=== PATIENT | male | born 1965 | race Caucasian/White ===

== ENCOUNTER 2019-09-27 18:18 | Emergency (ER) | payer OTHER ==
[2019-09-27 18:42] LABS: ABS Eosinophils 0.1 10^3/ul (0-0.6); ABS Lymphocytes 2.5 10^3/ul (1.0-4.8); ABS Monocytes 0.5 10^3/ul (0-0.8); ABS Neutrophils 3.5 10^3/ul (1.5-7.7); Eosinophil % 2.2 %; Hematocrit 45 % (42-52); Hemoglobin 15.7 g/dL (14.0-18.0); Lymphocyte % 37.2 %; Mean Corpuscular HGB Conc 35 g/dL (31-36); Mean Corpuscular Hemoglobin 31 pg (27-31); Mean Corpuscular Volume 88 fL (80-94); Mean Platelet Volume 7.1 fL (7.4-10.4); Platelet Count 182 10^3/uL (150-450); Red Blood Count 5.07 10^6 /uL (4.18-5.48); Red Cell Distribution Width 13 % (10-15); White Blood Count 6.8 10^3/uL (3.5-10.8)
[2019-09-27 18:46] LABS: INR 0.97 (0.82-1.09)
[2019-09-27 18:57] LABS: Albumin 4.6 g/dL (3.2-5.2); Albumin/Globulin Ratio 1.5 (1-3); BUN/Creatinine Ratio 18.4 (8-20); Calcium 9.4 mg/dL (8.6-10.3); EGFR African American 111.1 (>60); EGFR Non-African American 91.8 (>60); Globulin 3.1 g/dL (2-4); Potassium 3.3 mmol/L (3.5-5.0); Total Bilirubin 0.5 mg/dL (0.2-1.0); Total Protein 7.7 g/dL (6.4-8.9)
[2019-09-27 18:59] LABS: Troponin I 0.01 ng/mL (<0.04)
[2019-09-27] MEDS ORDERED: Sucralfate TAB* 1 GM PO ONE (20:45)
--- NOTE | 2019-09-27 20:50 | ED ---
HPI Chest Pain - HPI Summary HPI Summary: This patient is a 54 year old M presenting to ED with a chief complaint of intermittent sub-sternal chest pain described as tightness since three days ago. Patient was in the yard moving firewood all weekend. He felt fine this morning but noticed the chest tightness after a stressful situation at work. Patient has been having similar pain off-and-on since the summer and thinks it is acid reflux, but decided after this bout to see a doctor. He called his PCP who recommended he come here. In the room, patient reports still having the chest tightness. The patient rates the pain 1/10 in severity. Symptoms aggravated by stressful situations. Symptoms alleviated by burping, drinking fluids, and deep breathing. Patient denies nausea, vomiting, lightheadedness, dizziness, fevers, chills. - History of Current Complaint Chief Complaint: EDChestPainROMI Time Seen by Provider: 09/27/19 20:37 Hx Obtained From: Patient Onset/Duration: Started Days Ago - 3 days, Still Present Timing: Intermittent Initial Severity: Mild Current Severity: Mild Pain Intensity: 1 Pain Scale Used: 0-10 Numeric Chest Pain Location: Discrete at: - Sub-sternal Character: Tightness Aggravating Factor(s): Nothing Alleviating Factor(s): Other: - Burping, drinking fluids, deep breaths Associated Signs and Symptoms: Negative: Dizziness, Fever, Chills, Lightheadedness, Nausea, Vomiting - Allergy/Home Medications Allergies/Adverse Reactions: Allergies Allergy/AdvReac Type Severity Reaction Status Date / Time No Known Allergies Allergy Verified 09/27/19 18:24 PMH/Surg Hx/FS Hx/Imm Hx Previously Healthy: No Endocrine/Hematology History: Denies: Hx Diabetes Cardiovascular History: Reports: Hx Hypercholesterolemia Denies: Hx Hypertension, Hx Pacemaker/ICD History: Denies: Hx Renal Disease Sensory History: Denies: Hx Hearing Aid Psychiatric History: Denies: Hx Panic Disorder Infectious Disease History: No Infectious Disease History: Denies: Traveled Outside the [place] in Last 30 Days - Family History Known Family History: Positive: Cardiac Disease, Hypertension - Social History Alcohol Use: Daily Alcohol Amount: 2-3 drinks/day Hx Substance Use: No Substance Use Type: Reports: None Hx Tobacco Use: No Smoking Status (MU): Never Smoked Tobacco Review of Systems Negative: Fever, Chills Positive: Chest Pain Negative: Vomiting, Nausea Neurological: Negative - Lightheadedness, dizziness All Other Systems Reviewed And Are Negative: Yes Physical Exam - Summary Physical Exam Summary: Appearance: The patient is well-nourished in no acute distress and in no acute pain. Skin: The skin is warm and dry, and skin color reflects adequate perfusion. HEENT: The head is normocephalic and atraumatic. The pupils are equal and reactive. The conjunctivae are clear and without drainage. Nares are patent and without drainage. Mouth reveals moist mucous membranes, and the throat is without erythema and exudate. The external ears are intact. The ear canals are patent and without drainage. The tympanic membranes are intact. Neck: The neck is supple with full range of motion and non-tender. There are no carotid bruits. There is no neck vein distension. Respiratory: Chest is non-tender. Lungs are clear to auscultation and breath sounds are symmetrical and equal. Cardiovascular: Heart is regular rate and rhythm. There is no murmur or rub auscultated. There is no peripheral edema and pulses are symmetrical and equal. Abdomen: The abdomen is soft and non-tender. There are normal bowel sounds heard in all four quadrants and there is no organomegaly palpated. Musculoskeletal: There is no back tenderness noted. Extremities are non-tender with full range of motion. There is good capillary refill. There is no peripheral edema or calf tenderness elicited. Neurological: Patient is alert and oriented to person, place and time. The patient has symmetrical motor strength in all four extremities. Cranial nerves are grossly intact. Deep tendon reflexes are symmetrical and equal in all four extremities. Psychiatric: The patient has an appropriate affect and does not exhibit any anxiety or depression. Triage Information Reviewed: Yes Vital Signs On Initial Exam: Initial Vitals Temp Pulse Resp BP Pulse Ox 97.1 F 71 14 0/0 100 09/27/19 18:22 09/27/19 18:22 09/27/19 18:22 09/27/19 18:22 09/27/19 18:22 Vital Signs Reviewed: Yes Procedures - Sedation Patient Received Moderate/Deep Sedation with Procedure: No Diagnostics - Vital Signs Vital Signs Temp Pulse Resp BP Pulse Ox 09/27/19 18:22 97.1 F 71 14 0/0 100 - Laboratory Lab Results: Lab Results 09/27/19 09/27/19 09/27/19 Range/Units 18:27 18:27 18:27 WBC 6.8 (3.5-10.8) 10^3/uL RBC 5.07 (4.18-5.48) 10^6 /uL Hgb 15.7 (14.0-18.0) g/dL Hct 45 (42-52) % MCV 88 (80-94) fL MCH 31 (27-31) pg MCHC 35 (31-36) g/dL RDW 13 (10-15) % Plt Count 182 (150-450) 10^3/uL MPV 7.1 L (7.4-10.4) fL Neut % (Auto) 52.2 % Lymph % (Auto) 37.2 % Haakon % (Auto) 7.8 % Eos % (Auto) 2.2 % Baso % (Auto) 0.6 % Absolute Neuts (auto) 3.5 (1.5-7.7) 10^3/ul Absolute Lymphs (auto) 2.5 (1.0-4.8) 10^3/ul Absolute Monos (auto) 0.5 (0-0.8) 10^3/ul Absolute Eos (auto) 0.1 (0-0.6) 10^3/ul Absolute Basos (auto) 0.0 (0-0.2) 10^3/ul Absolute Nucleated RBC 0.0 10^3/ul Nucleated RBC % 0.0 INR (Anticoag Therapy) 0.97 (0.82-1.09) Sodium 139 (135-145) mmol/L Potassium 3.3 L (3.5-5.0) mmol/L Chloride 106 (101-111) mmol/L Carbon Dioxide 27 (22-32) mmol/L Anion Gap 6 (2-11) mmol/L BUN 16 (6-24) mg/dL Creatinine 0.87 (0.67-1.17) mg/dL Est GFR ( Amer) 111.1 (>60) Est GFR (Non-Af Amer) 91.8 (>60) BUN/Creatinine Ratio 18.4 (8-20) Glucose 136 H (70-100) mg/dL Calcium 9.4 (8.6-10.3) mg/dL Total Bilirubin 0.50 (0.2-1.0) mg/dL AST 25 (13-39) U/L ALT 32 (7-52) U/L Alkaline Phosphatase 62 (34-104) U/L Troponin I 0.01 (<0.04) ng/mL Total Protein 7.7 (6.4-8.9) g/dL Albumin 4.6 (3.2-5.2) g/dL Globulin 3.1 (2-4) g/dL Albumin/Globulin Ratio 1.5 (1-3) Result Diagrams: 09/27/19 18:27 09/27/19 18:27 Lab Statement: Any lab studies that have been ordered have been reviewed, and results considered in the medical decision making process. - EKG 1822 Cardiac Rate: NL - 70 BPM EKG Rhythm: Sinus Rhythm ST Segment: Normal Ectopy: None Summary of EKG Findings: Normal sinus rhythm at 70 BPM, normal ST, no ectopy, no STEMI. Dr. Ness has reviewed and interpreted this EKG. Re-Evaluation - Re-Evaluation First Eval Re-Evaluation Time: 21:51 Change: Unchanged Comment: Patient reports still feeling the tightness in his chest. Chest Pain Course/Dx - Course Course Of Treatment: Mr. Humphries presented with an atypical chest pain. His EKG , chest x-ray and labs were all within normal limits. His heart score was 1. I believe this is GI problem but he only got minor relief from sucralfate. I recommended follow-up with his PCP for further evaluation and possible referral. - Diagnoses Provider Diagnoses: Chest pain Discharge ED - Sign-Out/Discharge Documenting (check all that apply): Patient Departure - Discharge Plan Condition: Stable Disposition: HOME Referrals: Yemi Shankar MD [Primary Care Provider] - - Billing Disposition and Condition Condition: STABLE Disposition: Home - Attestation Statements Document Initiated by Priscilaibe: Yes Documenting Scribe: Evert Chan Provider For Whom Hector is Documenting (Include Credential): Cassius Nses MD Scribe Attestation: IEvert, scribed for Cassius Ness MD on 09/27/19 at 2154. Scribe Documentation Reviewed: Yes Provider Attestation: The documentation as recorded by the Evert caban accurately reflects the service I personally performed and the decisions made by me, Cassius Ness MD Status of Scribe Document: Viewed
[2019-09-27 22:06] VITALS: BP 135/79
== END 2019-09-27 22:06 | disposition home or self-care (01) ==
LOC: ED 18:18
DX: R07.89 Other chest pain (principal)
CPT/HCPCS: 36415; 80053; 84484; 85025; 85610; 93005; 99282; A9270-GY